=== PATIENT | female | born 1960 | race African-American/Black ===

== ENCOUNTER → 2017-09-24 | Outpatient (CLI) | payer BC, OTHER ==
--- NOTE | 2017-09-25 18:37 | WOMENS IMAGING REPORT ---
EXAM DESCRIPTION: BILAT SCREENING MAMMO W/CAD COMPLETED DATE/TIME: 09/24/2017 8:26 am REASON FOR STUDY: SCREENING MAMMO Z12.31 ENCNTR SCREEN MAMMOGRAM FOR MALIGNANT NEOPLASM OF ANA COMPARISON: 2014, 2012 TECHNIQUE: Standard craniocaudal and mediolateral oblique views of each breast recorded using digita l acquisition. LIMITATIONS: None. FINDINGS: No masses, calcifications or architectural distortion. No areas of suspicion. Read with the assistance of CAD. .[facility] - R2 Cenova Version 1.3 .[facility] Imaging - R2 Cenova Version 1.[address] - R2 Cenova Version 2.4 .[facility] [place] Cenova Version 2.4 .[facility] - R2 Information Writer Version 9.2 IMPRESSION: NORMAL MAMMOGRAM. BIRADS 1. BREAST DENSITY: c. The breasts are heterogeneously dense, which may obscure small masses. BIRAD: 1 NEGATIVE RECOMMENDATION: ROUTINE SCREENING Please continue yearly bilateral screening in September 2018. Consider bilateral screening tomosynthesis given heterogeneously dense tissue COMMENT: The patient has been notified of the results by letter per SA requirements. Additional no tification policies are in place for contacting patient with suspicious or incomplete findings. Quality ID #[id number]: The [employer] recommends an annual screening mammogram for women aged 40 years or over. This facility utilizes a reminder system to ensure that all patients receive reminder letters, and/or direct phone calls for appointments. This includes reminders for routine scr eening mammograms, diagnostic mammograms, or other Breast Imaging Interventions when appropriate. Th is patient will be placed in the appropriate reminder system. The [employer] (ACR) has developed recommendations for screening MRI of the breast s in certain patient populations, to be used in conjunction with mammography. Breast MRI surveillanc e may be appropriate for women with more than 20% lifetime risk of developing breast cancer as deter mined by genetic testing, significant family history of the disease, or history of mantle radiation f or Hodgkins Disease. ACR Practice Guidelines 2008. TECHNICAL DOCUMENTATION: FINDING NUMBER: (1) ASSESSMENT: (1) JOB ID: [id number] [employer]- All Rights Reserved Reading location - IP/workstation name: [email or web address]
== END ==
LOC: WI 08:04
PROVIDERS: ATTEND Family Medicine
DX: Z12.31 Encounter for screening mammogram for malignant neoplasm of breast (principal)
CPT/HCPCS: 77067

== ENCOUNTER 2018-09-01 12:55 | Observation (INO) | payer OTHER ==
[2018-09-01] MEDS ORDERED: ASPIRIN 81 MG TABLET, CHEWABLE PO ONE (13:42)
--- NOTE | 2018-09-01 13:43 | ER Document Report ---
ED Medical Screen (RME) - General Chief Complaint: Chest Pain Stated Complaint: CHEST PAIN Time Seen by Provider: 09/01/18 13:41 Primary Care Provider: NABILA AGRAWAL MD [Primary Care Provider] - Follow up as needed Notes: Chief complaint: Chest pain History of complain:( obtained from----patient) 57 years old female with a history of hypertension diabetes, sleep apnea presents today with left-sided chest pain which woke up from bed early this morning with left arm pain. Taking a deep breath causes pain. She felt her heart beating fast at that time. Nauseous no vomiting. PHYSICAL EXAMINATION: GENERAL: Well-appearing, well-nourished and in no acute distress. HEAD: Atraumatic, normocephalic. EYES: Pupils equal round and reactive to light, extraocular movements intact, conjunctiva are normal. ENT: Nares patent, oropharynx clear without exudates. Moist mucous membranes. NECK: Normal range of motion, supple without lymphadenopathy LUNGS: Breath sounds clear to auscultation bilaterally and equal. No wheezes rales or rhonchi. Chest-sharp chest wall tenderness noted to the left upper chest wall as well as scapular region. HEART: Regular rate and rhythm without murmurs ABDOMEN: Soft, nontender, nondistended abdomen. No guarding, no rebound. No masses appreciated. Examination of genitals-deferred NEUROLOGICAL: Cranial nerves grossly intact. Normal speech, normal gait. Nor mal sensory, motor exams PSYCH: Normal mood, normal affect. SKIN: Warm, Dry, normal turgor, no rashes or lesions noted. Dictation was performed using [employer] voice recognition software TRAVEL OUTSIDE OF THE [place] IN LAST 30 DAYS: No - Related Data Allergies/Adverse Reactions: No Known Allergies Allergy (Verified 09/01/18 12:56) Past Medical History - Social History Chew tobacco use (# tins/day): No Frequency of alcohol use: None Drug Abuse: None Renal/ Medical History: Denies: Hx Peritoneal Dialysis Physical Exam - Vital signs Vitals: Temp Pulse Resp BP Pulse Ox 97.9 F 76 18 134/73 H 98 09/01/18 13:02 09/01/18 13:02 09/01/18 13:02 09/01/18 13:02 09/01/18 13:02 Course - Vital Signs Vital signs: Temp Pulse Resp BP Pulse Ox 97.9 F 76 18 134/73 H 98 09/01/18 13:02 09/01/18 13:02 09/01/18 13:02 09/01/18 13:02 09/01/18 13:02 Doctor's Discharge - Discharge Referrals: NABILA AGRAWAL MD [Primary Care Provider] - Follow up as needed
[2018-09-01 14:22] LABS: ABSOLUTE BASOPHILS # (AUTO) 0.1 10^3/uL (0.0-0.2); ABSOLUTE EOSINOPHILS # (AUTO) 0.1 10^3/uL (0.0-0.6); ABSOLUTE LYMPHOCYTES (AUTO) 3.4 10^3/uL (0.5-4.7); ABSOLUTE MONOCYTES (AUTO) 0.7 10^3/uL (0.1-1.4); ABSOLUTE NEUT (AUTO) 4.7 10^3/uL (1.7-8.2); BASOPHILS % (AUTO) 1.5 % (0-2); EOSINOPHILS % (AUTO) 1.4 % (0-6); HEMATOCRIT 42.4 % (36.0-47.0); HEMOGLOBIN 14.3 g/dL (12.0-15.5); LYMPHOCYTES % (AUTO) 37.5 % (13-45); MEAN CORPUSCULAR HEMOGLOBIN 26.5 pg (27.0-33.4); MEAN CORPUSCULAR HGB CONC 33.8 g/dL (32.0-36.0); MEAN CORPUSCULAR VOLUME 79 fl (80-97); MONOCYTES % (AUTO) 7.9 % (3-13); PLATELET COUNT 233 10^3/uL (150-450); RED CELL DISTRIBUTION WIDTH 16.3 % (11.5-14.0); SEGMENTED NEUTROPHILS % (AUTO) 51.7 % (42-78); TOTAL CELLS COUNTED % (AUTO) 100 %; WHITE BLOOD COUNT 9.1 10^3/uL (4.0-10.5)
--- NOTE | 2018-09-01 14:36 | RADIOLOGY REPORT (SQ) ---
EXAM DESCRIPTION: CHEST SINGLE VIEW COMPLETED DATE/TIME: 09/01/2018 2:22 pm REASON FOR STUDY: Chest x-ray COMPARISON: 11/13/2009. EXAM PARAMETERS: NUMBER OF VIEWS: One view. TECHNIQUE: Single frontal radiographic view of the chest acquired. RADIATION DOSE: NA LIMITATIONS: None. FINDINGS: LUNGS AND PLEURA: No opacities, masses or pneumothorax. No pleural effusion. MEDIASTINUM AND HILAR STRUCTURES: No masses. Contour normal. HEART AND VASCULAR STRUCTURES: Heart normal in size. Normal vasculature. BONES: No acute findings. HARDWARE: None in the chest. OTHER: No other significant finding. IMPRESSION: NO ACUTE RADIOGRAPHIC FINDING IN THE CHEST. TECHNICAL DOCUMENTATION: JOB ID: [id number] [employer]- All Rights Reserved Reading location - IP/workstation name: [email or web address]
[2018-09-01 14:42] LABS: ALANINE AMINOTRANSFERASE 18 U/L (9-52); ALBUMIN 4.7 g/dL (3.5-5.0); ALKALINE PHOSPHATASE 108 U/L (38-126); ANION GAP 10 (5-19); ASPARTATE AMINO TRANSFERASE 23 U/L (14-36); BILIRUBIN,DIRECT 0.2 mg/dL (0.0-0.4); BILIRUBIN,TOTAL 0.5 mg/dL (0.2-1.3); BLOOD UREA NITROGEN 19 mg/dL (7-20); CALCIUM 10.6 mg/dL (8.4-10.2); CARBON DIOXIDE 27 mmol/L (22-30); CHLORIDE 105 mmol/L (98-107); CREATINE KINASE 221 U/L (30-135); GLUCOSE 122 mg/dL (75-110); POTASSIUM 3.7 mmol/L (3.6-5.0); SODIUM 142.1 mmol/L (137-145)
[2018-09-01 14:53] LABS: CREATINE KINASE MB 1.02 ng/mL (<4.55)
[2018-09-01 14:54] LABS: TROPONIN I < 0.012 ng/mL
--- NOTE | 2018-09-01 18:20 | ER Document Report ---
ED General - General Chief Complaint: Chest Pain Stated Complaint: CHEST PAIN Time Seen by Provider: 09/01/18 13:41 Notes: Patient is a 57-year-old female presents to the emergency department for continued intermittent dull pressure in the left side of her chest radiating to her left shoulder. Patient states this pain started at 2:00 in the morning when she had her CPAP mask on. Patient states she feels as though she could not breathe and noticed that she had a dull pressure in the left side of her chest. Patient states the pain is intermittent but does not increase with deep inspiration, palpation or movement. Patient states at this point in time she is pain-free. Patient states she has no history of cardiology follow-up to include echocardiogram or stress test. Patient is denying any cough, congestion, fever, abdominal pain, nausea, vomiting. Past medical history: Diabetes, hypertension, hyperlipidemia, sleep apnea, asth ma Medications: Metformin, amlodipine, pravastatin, aspirin Allergies: None TRAVEL OUTSIDE OF THE [place] IN LAST 30 DAYS: No - Related Data Allergies/Adverse Reactions: No Known Allergies Allergy (Verified 09/01/18 12:56) Past Medical History - General Information source: Patient - Social History Smoking Status: Never Smoker Chew tobacco use (# tins/day): No Frequency of alcohol use: None Drug Abuse: None Family History: Reviewed & Not Pertinent Patient has suicidal ideation: No Patient has homicidal ideation: No Renal/ Medical History: Denies: Hx Peritoneal Dialysis Review of Systems - Review of Systems Constitutional: No symptoms reported EENT: No symptoms reported Cardiovascular: See HPI Respiratory: See HPI Gastrointestinal: No symptoms reported Genitourinary: No symptoms reported Female Genitourinary: No symptoms reported Musculoskeletal: No symptoms reported Skin: No symptoms reported Hematologic/Lymphatic: No symptoms reported Neurological/Psychological: No symptoms reported Physical Exam - Vital signs Vitals: Temp Pulse Resp BP Pulse Ox 97.9 F 76 18 134/73 H 98 09/01/18 13:02 09/01/18 13:02 09/01/18 13:02 09/01/18 13:02 09/01/18 13:02 - Notes Notes: GENERAL: Alert, interacts well. No acute distress. HEAD: Normocephalic, atraumatic. EYES: Pupils equal, round, and reactive to light. Extraocular movements intact. ENT: Oral mucosa moist, tongue midline. NECK: Full range of motion. Supple. Trachea midline. LUNGS: Clear to auscultation bilaterally, no wheezes, rales, or rhonchi. No respiratory distress. Chest: No crepitus felt, no erythema or ecchymosis noted anterior posterior chest wall. HEART: Regular rate and rhythm. No murmur ABDOMEN: Soft, non-tender. Non-distended. Bowel sounds present in all 4 quadrants. EXTREMITIES: Moves all 4 extremities spontaneously. No edema, normal radial and dorsalis pedis pulses bilaterally. No cyanosis. BACK: no cervical, thoracic, lumbar midline tenderness. No saddle anesthesia, normal distal neurovascular exam. NEUROLOGICAL: Alert and oriented x3. Normal speech. cranial nerves II through XII grossly intact PSYCH: Normal affect, normal mood. SKIN: Warm, dry, normal turgor. No rashes or lesions noted. Course - Re-evaluation Re-evalutation: Upon my examination patient is currently denying any pain. Patient states the pain is intermittent in nature but she is noting that it does not increase, decrease or change upon movement or deep palpation of the left side of her chest. Patient's EKG shows a sinus rhythm of 72, QTc 478, no acute ST segment e levations or depressions noted. Patient is noted to have a HEART Score: 4 History 1 ECG 0 Age 1 Risk Factors 2 Tropoin 0 Discussed this with hospitalist Dr. Amaral who will admit the patient for chest pain rule out. Patient's vitals are currently stable she continues to admit to me that she is chest pain-free. - Vital Signs Vital signs: Temp Pulse Resp BP Pulse Ox 97.9 F 76 19 157/81 H 94 09/01/18 13:02 09/01/18 13:02 09/01/18 18:01 09/01/18 18:01 09/01/18 18:01 - Laboratory Result Diagrams: 09/01/18 14:09 09/01/18 14:09 Laboratory results interpreted by me: 09/01/18 09/01/18 14:09 14:09 RBC 5.40 H MCV 79 L MCH 26.5 L RDW 16.3 H Glucose 122 H Calcium 10.6 H Creatine Kinase 221 H Discharge - Discharge Clinical Impression: Chest pain Qualifiers: Chest pain type: unspecified Qualified Code(s): R07.9 - Chest pain, unspecified Condition: Stable Disposition: ADMITTED OBSERVATION Admitting Provider: Hospitalist - Dr. Amaral Unit Admitted: Telemetry
[2018-09-01] MEDS ORDERED: NITROGLYCERIN 0.4 MG/TAB 25 TAB/BOTTLE SL PRN (19:11)
[2018-09-01] MEDS ORDERED: MAG HYDROX/AL HYDROX/SIMETH SUSP 30 ML UDCUP PO PRN (19:11)
[2018-09-01] MEDS ORDERED: ONDANSETRON HCL INJ/PF 4 MG/2 ML SDV IV PRN (19:11)
[2018-09-01] MEDS ORDERED: DEXTROSE 40% GEL 15 GM TUBE PO PRN ×2 (19:15)
[2018-09-01] MEDS ORDERED: GLUCAGON,HUMAN RECOMB 1 MG INJ IM PRN (19:15)
[2018-09-01] MEDS ORDERED: DEXTROSE 50%-WATER 25 GM/50 ML DISP.SYRIN IV PRN ×2 (19:15)
[2018-09-01 21:21] LABS: CREATINE KINASE MB 0.81 ng/mL (<4.55)
[2018-09-01 21:22] LABS: TROPONIN I < 0.012 ng/mL
[2018-09-01] MEDS: INSULIN LISPRO 100 UNIT/ML 3 ML VIAL SUBCUT SCH (21:55)
[2018-09-01] MEDS ORDERED: ATORVASTATIN CALCIUM 80 MG TABLET PO SCH (22:00)
--- NOTE | 2018-09-02 04:42 | PDOC H&P ---
History of Present Illness Admission Date/PCP: 09/01/18 18:33 NABILA AGRAWAL MD Patient complains of: Chest pain History of Present Illness: MEGA PALMER is a 57 year old female with a past medical history of hypertension,, diabetes and obstructive sleep apnea. She presents with 12 hours of intermittent left-sided chest pain which radiates to the shoulder 3 out of 5 intensity, waxing and waning associated with palpitations, shortness of breath and nausea without vomiting. Episodes occur while at rest and seem to be exacerbated by activity she has not noted any alleviating factors. In the emergency room she is pain-free with an unremarkable workup she denies recent medication changes, cardiac stress test and is otherwise felt well. Past Medical History Cardiac Medical History: Reports: Hypertension Denies: Congestive Heart Failure, Myocardial Infarction Pulmonary Medical History: Reports: Asthma Denies: Bronchitis, Chronic Obstructive Pulmonary Disease (COPD), Pneumonia, Tuberculosis Neurological Medical History: Denies: Seizures Endocrine Medical History: Reports: Diabetes Mellitus Type 2, Obesity Renal/ Medical History: Denies: End Stage Renal Disease GI Medical History: Denies: Cirrhosis, Gastroesophageal Reflux Disease Musculoskeltal Medical History: Denies: Arthritis Psychiatric Medical History: Denies: Bipolar Disorder, Depression Hematology: Denies: Anemia, Bleeding Tendencies Past Surgical History Past Surgical History: Reports: Hysterectomy Social History Information Source: Patient Lives with: Family Smoking Status: Never Smoker Frequency of Alcohol Use: None Drugs: None - Advance Directive Resuscitation Status: Full Code Family History Family History: CAD, CVA Parental Family History Reviewed: Yes Children Family History Reviewed: Yes Sibling(s) Family History Reviewed.: Yes Medication/Allergy Home Medications: Amlodipine Besylate [Norvasc 2.5 mg Tablet] 2.5 mg PO DAILY 09/01/18 Aspirin [Aspirin 81 mg Chewable Tablet] 81 mg PO DAILY 09/01/18 Metformin HCl [Glucophage XR 500 mg Tablet] 1,000 mg PO BIDBS 09/01/18 Nebivolol HCl [Bystolic 10 mg Tablet] 10 mg PO DAILY 09/01/18 Pravastatin Sodium [Pravachol] 40 mg PO DAILY 09/01/18 Allergies/Adverse Reactions: No Known Allergies Allergy (Verified 09/01/18 12:56) Review of Systems Constitutional: ABSENT: chills, fever(s), headache(s), weight gain, weight loss Eyes: ABSENT: visual disturbances Ears: ABSENT: hearing changes Cardiovascular: ABSENT: chest pain, dyspnea on exertion, edema, orthropnea, palpitations Respiratory: ABSENT: cough, hemoptysis Gastrointestinal: ABSENT: abdominal pain, constipation, diarrhea, hematemesis, hematochezia, nausea, vomiting Genitourinary: ABSENT: dysuria, hematuria Musculoskeletal: ABSENT: joint swelling Integumentary: ABSENT: rash, wounds Neurological: ABSENT: abnormal gait, abnormal speech, confusion, dizziness, focal weakness, syncope Psychiatric: ABSENT: anxiety, depression, homidical ideation, suicidal ideation Endocrine: ABSENT: cold intolerance, heat intolerance, polydipsia, polyuria Hematologic/Lymphatic: ABSENT: easy bleeding, easy bruising Physical Exam Vital Signs: Temp Pulse Resp BP Pulse Ox 98.1 F 62 18 159/81 H 95 09/01/18 21:59 09/02/18 02:00 09/01/18 21:59 09/01/18 21:59 09/01/18 21:59 Intake & Output 08/31/18 09/01/18 09/02/18 11:59 11:59 11:59 Weight 103.6 kg General appearance: PRESENT: no acute distress, well-developed, well-nourished Head exam: PRESENT: atraumatic, normocephalic Eye exam: PRESENT: conjunctiva pink, EOMI, PERRLA. ABSENT: scleral icterus Ear exam: PRESENT: normal external ear exam Mouth exam: PRESENT: moist, tongue midline Neck exam: ABSENT: carotid bruit, JVD, lymphadenopathy, thyromegaly Respiratory exam: PRESENT: clear to auscultation montserrat. ABSENT: rales, rhonchi, wheezes Cardiovascular exam: PRESENT: RRR. ABSENT: diastolic murmur, rubs, systolic murmur Pulses: PRESENT: normal dorsalis pedis pul Vascular exam: PRESENT: normal capillary refill GI/Abdominal exam: PRESENT: normal bowel sounds, soft. ABSENT: distended, guarding, mass, organolmegaly, rebound, tenderness Rectal exam: PRESENT: deferred Extremities exam: PRESENT: full ROM. ABSENT: calf tenderness, clubbing, pedal edema Neurological exam: PRESENT: alert, awake, oriented to person, oriented to place, oriented to time, oriented to situation, CN II-XII grossly intact. ABSENT: motor sensory deficit Psychiatric exam: PRESENT: appropriate affect, normal mood. ABSENT: homicidal ideation, suicidal ideation Skin exam: PRESENT: dry, intact, warm. ABSENT: cyanosis, rash Results Laboratory Results: 09/01/18 14:09 09/01/18 14:09 09/01/18 09/01/18 09/01/18 14:09 14:09 17:45 WBC 9.1 RBC 5.40 H Hgb 14.3 Hct 42.4 MCV 79 L MCH 26.5 L MCHC 33.8 RDW 16.3 H Plt Count 233 Seg Neutrophils % 51.7 Lymphocytes % 37.5 Monocytes % 7.9 Eosinophils % 1.4 Basophils % 1.5 Absolute Neutrophils 4.7 Absolute Lymphocytes 3.4 Absolute Monocytes 0.7 Absolute Eosinophils 0.1 Absolute Basophils 0.1 Sodium 142.1 Potassium 3.7 Chloride 105 Carbon Dioxide 27 Anion Gap 10 BUN 19 Creatinine 0.60 Est GFR ( Amer) > 60 Est GFR (Non-Af Amer) > 60 Glucose 122 H Calcium 10.6 H Total Bilirubin 0.5 AST 23 ALT 18 Alkaline Phosphatase 108 Total Protein 8.0 Albumin 4.7 TSH 0.74 09/01/18 09/01/18 09/01/18 14:09 14:09 17:45 Creatine Kinase 221 H CK-MB (CK-2) 1.02 Troponin I < 0.012 < 0.012 09/01/18 20:43 Creatine Kinase CK-MB (CK-2) 0.81 Troponin I < 0.012 Impressions: Chest X-Ray 09/01/18 13:42 IMPRESSION: NO ACUTE RADIOGRAPHIC FINDING IN THE CHEST. Assessment & Plan - Diagnosis (1) Chest pain Qualifiers: Chest pain type: unspecified Qualified Code(s): R07.9 - Chest pain, unspecified Is this a current diagnosis for this admission?: Yes Plan: Telemetry observation, follow-up cardiac enzymes, Cardiolite stress test, lipid profile. (2) Hypertension Is this a current diagnosis for this admission?: Yes Plan: ADAMS inhibitor, nitrates as needed (3) Diabetes Is this a current diagnosis for this admission?: Yes Plan: Hold metformin, Humalog sliding scale, (4) Obesity Is this a current diagnosis for this admission?: Yes Plan: BMI 37, follow-up TSH - Time Time Spent: 50 to 70 Minutes - Inpatient Certification Medical Necessity: Need Close Monitoring Due to Risk of Patient Decompensation
[2018-09-02 05:37] LABS: CREATINE KINASE 151 U/L (30-135); TRIGLYCERIDES 130 mg/dL (<150)
[2018-09-02 05:48] LABS: DIRECT LDL 121 mg/dL (<100)
[2018-09-02 05:50] LABS: CREATINE KINASE MB 0.59 ng/mL (<4.55)
[2018-09-02 05:56] LABS: TROPONIN I < 0.012 ng/mL
[2018-09-02] MEDS: INSULIN LISPRO 100 UNIT/ML 3 ML VIAL SUBCUT SCH ×3 (08:16→17:40)
[2018-09-02] MEDS ORDERED: RAMIPRIL 10 MG CAPSULE PO SCH (10:00)
[2018-09-02] MEDS: DOCUSATE SODIUM 100 MG CAPSULE PO SCH ×2 (11:27→17:43)
[2018-09-02 12:18] LABS: CREATINE KINASE MB 0.61 ng/mL (<4.55)
[2018-09-02 12:19] LABS: TROPONIN I < 0.012 ng/mL
[2018-09-02] MEDS ORDERED: REGADENOSON INJ 0.4 MG/5 ML DISP.SYRIN IV ONE (14:58)
[2018-09-02 15:33] VITALS: BP 133/74
--- NOTE | 2018-09-02 21:08 | PDOC DISCHARGE SUMMARY ---
General - Admit/Disc Date/PCP Admission Date/Primary Care Provider: 09/01/18 18:33 NABILA AGRAWAL MD Discharge Date: 09/02/18 - Discharge Diagnosis (1) Chest pain Is this a current diagnosis for this admission?: Yes Summary: PT was admitted to the medical floor on continuous cardiac telemetry. No abnormal rhythms noted. Lipid panel was acceptable. Troponins negative x 4. EKG demonstrated NSR. Received call from Briquette Molder; stress test was normal. Formalized report is p ending. Patient is discharged to home in stable condition. She has been asymptomatic since time of admission. She is advised to follow up with her primary care provider within 1 week and to return to the emergency department as needed for concerning symptoms. (2) Diabetes Is this a current diagnosis for this admission?: Yes Summary: A1C reportedly 7.1%; patient states was recently checked by PCP. Metformin was held and blood sugar managed with sliding scale Humalog while admitted. At discharge, patient is instructed to resume her home medication regiment and follow consistent carb diet. Encouraged medication and dietary compliance. (3) Hypertension Is this a current diagnosis for this admission?: Yes Summary: Acceptable blood pressures on home medication regiment. Recommend continued amlodipine and bystolic. (4) Obesity Is this a current diagnosis for this admission?: Yes Summary: TSH is nml. Dietary discretion is advised. Recommended continued lifestyle modifications for weight reduction. - Additional Information Resuscitation Status: Full Code Discharge Diet: Cardiac, Diabetic Discharge Activity: Activity As Tolerated, Balance Activity w/Rest, Slowly Increase Activity Home Medications: Amlodipine Besylate [Norvasc 2.5 mg Tablet] 2.5 mg PO DAILY 09/01/18 Aspirin [Aspirin 81 mg Chewable Tablet] 81 mg PO DAILY 09/01/18 Metformin HCl [Glucophage XR 500 mg Tablet] 1,000 mg PO BIDBS 09/01/18 Nebivolol HCl [Bystolic 10 mg Tablet] 10 mg PO DAILY 09/01/18 Pravastatin Sodium [Pravachol] 40 mg PO DAILY 09/01/18 History of Present Illness History of Present Illness: Per H&P by Dr. Willingham: MEGA PALMER is a 57 year old female with a past medical history of hypertension,, diabetes and obstructive sleep apnea. She presents with 12 hours of intermittent left-sided chest pain which radiates to the shoulder 3 out of 5 intensity, waxing and waning associated with palpitations, shortness of breath and nausea without vomiting. Episodes occur while at rest and seem to be exacerbated by activity she has not noted any alleviating factors. In the emergency room she is pain-free with an unremarkable workup she denies recent medication changes, cardiac stress test and is otherwise felt well. Physical Exam Vital Signs: Temp Pulse Resp BP Pulse Ox 98.6 F 82 18 133/74 H 96 09/02/18 18:03 09/02/18 18:03 09/02/18 18:03 09/02/18 18:03 09/02/18 18:03 Intake & Output 09/01/18 09/02/18 09/03/18 06:59 06:59 06:59 Intake Total 980 Balance 980 Weight 103.6 kg General appearance: PRESENT: no acute distress, cooperative, obese, well- developed, well-nourished Head exam: PRESENT: atraumatic, normocephalic Eye exam: PRESENT: conjunctiva pink, EOMI, PERRLA. ABSENT: scleral icterus Mouth exam: PRESENT: moist, tongue midline Respiratory exam: PRESENT: clear to auscultation montserrat. ABSENT: rales, rhonchi, wheezes Cardiovascular exam: PRESENT: RRR. ABSENT: diastolic murmur, rubs, systolic murmur Pulses: PRESENT: normal dorsalis pedis pul Vascular exam: PRESENT: normal capillary refill Rectal exam: PRESENT: deferred Extremities exam: PRESENT: full ROM. ABSENT: calf tenderness, clubbing, pedal edema Neurological exam: PRESENT: alert, awake, oriented to person, oriented to place, oriented to time, oriented to situation, CN II-XII grossly intact. ABSENT: motor sensory deficit Psychiatric exam: PRESENT: appropriate affect, normal mood. ABSENT: homicidal ideation, suicidal ideation Skin exam: PRESENT: dry, intact, warm. ABSENT: cyanosis, rash Results Laboratory Results: 09/01/18 14:09 09/01/18 14:09 09/02/18 03:43 Triglycerides 130 Cholesterol 228.80 H LDL Cholesterol Direct 121 H VLDL Cholesterol 26.0 HDL Cholesterol 59 09/01/18 09/01/18 09/01/18 14:09 14:09 17:45 Creatine Kinase 221 H CK-MB (CK-2) 1.02 Troponin I < 0.012 < 0.012 09/01/18 09/02/18 09/02/18 20:43 03:43 03:43 Creatine Kinase 151 H CK-MB (CK-2) 0.81 0.59 Troponin I < 0.012 < 0.012 09/02/18 11:07 Creatine Kinase CK-MB (CK-2) 0.61 Troponin I < 0.012 Impressions: Chest X-Ray 09/01/18 13:42 IMPRESSION: NO ACUTE RADIOGRAPHIC FINDING IN THE CHEST. Qualifiers - * PATIENT BEING DISCHARGED WITH ANY OF THE FOLLOWING DIAGNOSIS: No Plan Discharge Plan: Discharge to home with self care. Follow up with primary care provider within 1 week. Continue lifestyle modifications; low fat/sodium diet, increased diabetic control, weight loss Continue daily aspirin and statin therapy. Return to the emergency department as needed for concerning symptoms. Time Spent: Less than 30 Minutes
--- NOTE | 2018-09-02 22:17 | EKG REPORT ---
SEVERITY:- ABNORMAL ECG - SINUS RHYTHM PROBABLE LEFT ATRIAL ABNORMALITY LEFT ANTERIOR FASCICULAR BLOCK LEFT VENTRICULAR HYPERTROPHY : Confirmed by: Jed Contreras 02-Sep-2018 22:16:30
--- NOTE | 2018-09-05 14:16 | DRAGON STRESS TEST REPORT ---
Intravenous Lexiscan Cardiolite stress test using single photon emmision computerized tomography. Date of procedure: 09/02/2018. Ordering Provider: Dr. Phillip Willingham. Patient's status: In Patient Indication: Chest pain. Coronary risk factors: Age, diabetes mellitus, hypertension, dyslipidemia, and family history of coronary artery disease. Resting EKG: Sinus Rhythm. LVH by voltage Stress EKG: No changes of ischemia. The patient has no chest pain or discomfort, and there were no arrhythmias seen. Reason for termination: Protocol. Conclusions: Normal EKG and hemodynamic response to IV Lexiscan. Nuclear data: At rest the patient was given 14.43 millicuries of technetium 99m sestamibi injected intravenously. As per protocol rest non gated SPECT images were obtained. Subsequently the patient was given intravenous Lexiscan at a dose of 0.4 mg in 5 mL intravenously, followed by flush with normal saline. Subsequently the stress dose of 43.1 millicuries of technetium 99m sestamibi was injected intravenously. As per protocol stress gated images were obtained. Nuclear interpretation: Review of images showed that all segments of the myocardium had normal perfusion at rest, and normal perfusion post stress with IV Lexiscan. All segments of the myocardium had normal motion, contraction, and thickening by gated study. T. I D. ratio was normal at . There is no transient ischemic dilatation of the left ventricle. Computer read rest, and stress left ventricular ejection fraction were 59 %, and 58 %, respectively. Conclusion: 1. There is no scintigraphic evidence of Lexiscan induced myocardial ischemia. 2. There is no scintigraphic evidence of myocardial infarction/scar. Recommendations: Aggressive risk factor modification, and treating the underlying co- morbidities. MTDD
== END 2018-09-02 18:15 | disposition home or self-care (01) ==
LOC: ER 12:55 → EH 18:33 → 5 21:52
PROVIDERS: ADMIT Internal Medicine; ATTEND Internal Medicine
DX: R07.9 Chest pain, unspecified (principal); E11.9 Type 2 diabetes mellitus without complications; I10 Essential (primary) hypertension; E66.9 Obesity, unspecified; E78.5 Hyperlipidemia, unspecified; M79.602 Pain in left arm; R11.0 Nausea; G47.33 Obstructive sleep apnea (adult) (pediatric); R00.2 Palpitations; Z79.84 Long term (current) use of oral hypoglycemic drugs; Z79.82 Long term (current) use of aspirin; Z79.899 Other long term (current) drug therapy; Z68.27 Body mass index [BMI] 27.0-27.9, adult; Z82.49 Family history of ischemic heart disease and other diseases of the circulatory system
CPT/HCPCS: 93005; 99285; 36415 ×2; 82553 ×2; 82962 ×2; 82550 ×2; 84443; 85025; 80053; 84484 ×2; 80061; 93017; 71045; 78452; 93010; G0378 ×3; A9500; J2785; J3490 ×2; Q9969

== ENCOUNTER → 2018-09-28 | Outpatient (CLI) | payer OTHER ==
--- NOTE | 2018-09-28 09:56 | WOMENS IMAGING REPORT ---
EXAM DESCRIPTION: BILAT SCREENING MAMMO W/CAD COMPLETED DATE/TIME: 09/28/2018 7:59 am REASON FOR STUDY: ROUTINE BILATERAL SCREENING;Z12.31 Z12.31 ENCNTR SCREEN MAMMOGRAM FOR MALIGNANT N EOPLASM OF ANA COMPARISON: [id number] TECHNIQUE: Standard craniocaudal and mediolateral oblique views of each breast recorded using [employer] acquisition. LIMITATIONS: None. FINDINGS: No masses, calcifications or architectural distortion. No areas of suspicion. Read with the assistance of CAD. [facility] - R2 [employer]en[employer] Version 1.3 .[facility] - R2 Cenova Version 2.1 .[facility] - R2 Cenova Version 2.4 .[facility] [place] - R2 Cenova Version 2.4 .[facility] - R2 [employer] Version 9.2 IMPRESSION: NORMAL MAMMOGRAM. BIRADS 1. BREAST DENSITY: b. There are scattered areas of fibroglandular density. BIRAD: 1 NEGATIVE RECOMMENDATION: ROUTINE SCREENING COMMENT: The patient has been notified of the results by letter per MQSA requirements. Additional no tification policies are in place for contacting patient with suspicious or incomplete findings. Quality ID #225: [employer] recommends an annual screening mammogram for women aged 40 years or over. This facility utilizes a reminder system to ensure that all patients receive reminder letters, and/or direct phone calls for appointments. This includes reminders for routine scr eening mammograms, diagnostic mammograms, or other Breast Imaging Interventions when appropriate. Th is patient will be placed in the appropriate reminder system. [employer] ([employer]) has developed recommendations for screening MRI of the breast s in certain patient populations, to be used in conjunction with mammography. Breast MRI surveillanc e may be appropriate for women with more than 20% lifetime risk of developing breast cancer as deter mined by genetic testing, significant family history of the disease, or history of mantle radiation f or Hodgkins Disease. ACR Practice Guidelines 2008. TECHNICAL DOCUMENTATION: FINDING NUMBER: (1) ASSESSMENT: (1) JOB ID: [id number] [facility]- All Rights Reserved Reading location - IP/workstation name: [email or web address]
== END ==
LOC: WI 07:42
PROVIDERS: ATTEND Family Medicine
DX: Z12.31 Encounter for screening mammogram for malignant neoplasm of breast (principal)
CPT/HCPCS: 77067